=== PATIENT | male | born 1980 ===

== ENCOUNTER → 2021-08-15 | Outpatient (CLI) | payer OTHER | LOC: MHCPAIN 12:14 | DX: M47.817 Spondylosis without myelopathy or radiculopathy, lumbosacral region (principal); M53.3 Sacrococcygeal disorders, not elsewhere classified; M54.16 Radiculopathy, lumbar region; M54.32 Sciatica, left side | CPT/HCPCS: G0463 ==

== ENCOUNTER → 2022-02-25 | Outpatient (CLI) | payer OTHER | LOC: MHCPAIN 13:33 | DX: M47.817 Spondylosis without myelopathy or radiculopathy, lumbosacral region (principal); M53.3 Sacrococcygeal disorders, not elsewhere classified | CPT/HCPCS: G0260; G0463; J1040; Q9967 ==

== ENCOUNTER → 2022-07-02 | Outpatient (CLI) | payer OTHER | LOC: MHCPAIN 10:34 | DX: M47.897 Other spondylosis, lumbosacral region (principal); M54.17 Radiculopathy, lumbosacral region; M53.3 Sacrococcygeal disorders, not elsewhere classified | CPT/HCPCS: G0463 ==

== ENCOUNTER → 2022-07-18 | Outpatient (CLI) | payer OTHER | LOC: MHCPAIN 08:10 | DX: M47.817 Spondylosis without myelopathy or radiculopathy, lumbosacral region (principal); M54.16 Radiculopathy, lumbar region | CPT/HCPCS: J1100; Q9967 ==

== ENCOUNTER → 2022-08-14 | Outpatient (CLI) | payer OTHER | LOC: MHCPAIN 13:59 | DX: M47.896 Other spondylosis, lumbar region (principal); M54.32 Sciatica, left side; M53.3 Sacrococcygeal disorders, not elsewhere classified | CPT/HCPCS: G0463 ==